=== PATIENT | male | born 1960 | race Caucasian/White ===

== ENCOUNTER 2024-10-15 08:02 | Day surgery (SDC) | payer OTHER, SELFPAY ==
[2024-10-15 08:36] VITALS: BP 134/69; PULSE 70; RESP 15; TEMP 36.7; O2SAT 98
[2024-10-15] MEDS: LACTATED RINGERS 1,000 ML 42 ML IV (08:39)
--- NOTE | 2024-10-15 09:07 | PM.HP.IH.1 ---
History of Present Illness History of Present Illness Date Patient Seen: 10/15/24 Time Patient Seen: 09:07 Chief complaint: Screening Colonoscopy Narrative: 63yo M due for screening colonosocpy, last exam 20 yrs ago, he thinks he had benign polyps, negative FH for colon cancer. PFSH Social History Smoking Status: Never smoker Meds Home Medications and Allergies Home Medications ?Medication ?Instructions ?Recorded ?Confirmed ?Type peg 3350-electrolytes 236 240 ml PO Q10M #4,000 mL 09/04/24 Rx gram-22.74 gram-6.74 gram-5.86 gram solution (Golytely) olmesartan 20 mg tablet 20 mg PO DAILY 10/15/24 10/15/24 History rosuvastatin 20 mg tablet 20 mg PO ONCE PM 10/15/24 10/15/24 History sildenafil 50 mg tablet 50 mg PO DAILY PRN erectile 10/15/24 10/15/24 History dysfunction tamsulosin 0.4 mg capsule PO 10/15/24 History Allergies Allergy/AdvReac Type Severity Reaction Status Date / Time Sulfa (Sulfonamide Allergy Intermediate Rash Verified 10/15/24 08:22 Antibiotics) Exam Vital Signs (past 8 hours): - 10/15/24 08:36 Temperature 98.1 F Pulse Rate 70 Respiratory Rate 15 Blood Pressure 134/69 Pulse Oximetry 98 Oxygen Delivery Method Room Air Oxygen Delivery Method Room Air Const General: comfortable Orientation: alert and oriented x3 Resp Effort & Inspection: normal respiratory effort and able to speak in complete sentences Cardio Rate: regular rate Rhythm: regular rhythm GI Palpation: soft (nontender) Extrem Other: without pitting edema Assessment & Plan Assessment and plan (1) Encounter for screening colonoscopy: Status: Acute Plan Colonoscopy with possible polypectomy - The risks, benefits and options regarding the procedure were explained to the patient in detail. Risk discussion included but not limited to: bleeding, perforation, unable to reach cecum, missed lesion. The patient was encouraged to ask questions and they were answered to their satisfaction. The patient understands and is agreeable to proceed. Time-Based Coding :: [TOTAL MINUTES] spent with patient and on the chart (including review of chart, obtaining history, exam, reviewing outside data, placing orders, documenting exam and treatment plan, and counseling patient) on [DATE]. PROFEE Senior Courtroom Clerk Document charge(s): Yes Charge Codes Inpatient/observation care including admit and discharge same day: [id number]
[2024-10-15] MEDS: SIMETHICONE DROPS 40 MG/0.6 ML PO (09:23)
[2024-10-15 09:35] VITALS: BP 108/54; PULSE 67; RESP 15; TEMP 36.2; O2SAT 97
--- NOTE | 2024-10-15 09:39 | P.OP.COLON_ITS ---
Operative Date/Time/Diagnoses Date of procedure: 10/15/24 Time of procedure: 09:39 Pre-op diagnosis: Screening colonoscopy Post-op diagnosis: same Procedure & Clinicians Study performed: Screening colonoscopy Same procedure(s) as scheduled: Yes Indications: 63yo M due for screening colonoscopy Surgeon: Leonardo Nichole Anesthesia Type: MAC +/- Procedure Notes SCOAP/Timeout: Performed Procedure in detail: Colonoscopy Patient placed in left lateral recumbent position. Time out was performed. Procedural sedation was administered by anesthesia. Examination began with a thorough inspection of the perianal area. There was no evidence of fissures, fistulae, external hemorrhoids or cutaneous malignancy. The colonoscope was then placed into the rectum and the lumen was insufflated with carbon dioxide. The scope was carefully advanced forward. Ultimately the cecum was intubated and confirmed by identification of the ileocecal valve, the appendiceal orifice and the confluence of the taenia. The scope was then slowly withdrawn examining the colon thoroughly in all directions. In the rectum, retroflexion of the scope was performed for inspection of the distal rectum and anal canal. ?Significant colonoscopy findings: ?1. Quality of the preparation-mod, [place] 1-2; reasonable mucosal evaluation with irrigaiton/suction ?2. no polyps 3. minor sigmoid diverticulosis, internal hemorrhoids Scope withdrawal time: 7 minutes Findings: divertiulosis Specimen(s): none sent Complications: none Impression: Normal exam, no polyps Plan next screening colonosocpy in 10 years Post-procedure Recommendations: Colonoscopy in 10 years Plan for aftercare: PACU then floor Follow up: as needed Disposition: PACU
[2024-10-15 09:41] VITALS: BP 100/52; PULSE 59; RESP 15; TEMP 36.2; O2SAT 97
[2024-10-15 09:49] VITALS: BP 105/53; PULSE 59; RESP 15; TEMP 36.2; O2SAT 97
== END 2024-10-15 10:20 | disposition home or self-care (01) ==
PROVIDERS: PCP Registered Nurse; Referring Provider Registered Nurse; Visit Provider Surgery
PROC: 0DJD8ZZ Inspection of Lower Intestinal Tract, Via Natural or Artificial Opening Endoscopic (ICD-10-PCS; CPT 45378; principal; 2024-10-15 09:30)
DX: Z12.11 Encounter for screening for malignant neoplasm of colon (principal); K57.30 Diverticulosis of large intestine without perforation or abscess without bleeding; K64.8 Other hemorrhoids
CPT/HCPCS: 45378; J2704